=== PATIENT | female | born 1945 | race Hispanic/Latino ===

== ENCOUNTER → 2022-03-27 | Day surgery (SDC) | payer MEDICARE ==
[2022-03-17 10:43] LABS: BASOPHILS # (AUTO) 0.1 (0.0-0.1); BASOPHILS % 0.9 % (0.0-1.0); EOSINOPHILS # (AUTO) 0.1 (0.0-0.4); EOSINOPHILS % 1.7 % (0.0-6.0); HEMATOCRIT 37.3 % (34.2-44.1); HEMOGLOBIN 12.2 g/dL (12.0-16.0); LYMPHOCYTES % 14.5 % (18.0-39.1); MEAN CORPUSCULAR HEMOGLOBIN 26.1 pg (28-32); MEAN CORPUSCULAR HGB CONC 32.7 g/dL (31-35); MEAN CORPUSCULAR VOLUME 79.9 fL (81-99); MONOCYTES # (AUTO) 0.5 (0.2-0.8); MONOCYTES % 7.3 % (4.4-11.3); NEUTROPHILS % 75.1 % (38.7-80.0); PLATELET COUNT 289 x10e3/uL (140-360); RED BLOOD COUNT 4.67 x10e6/uL (3.6-5.1); RED CELL DISTRIBUTION WIDTH 13.4 % (11.7-14.4)
[~2022-03-27] MED LIST: CRESTOR10 MG PO; GLIPIZIDE ER5 MG PO; HYOSCYAMINE SULFATE 0.5 MG/ML INJ ONE; LIDOCAINE HCL 2% LOCAL INJ 5 ML SDV VIAL INJ ONE; MIDAZOLAM HCL 2 MG/2 ML VIAL ONE; MULTI-DAY PLUS1 EAC1 PO; NEURONTIN100 MG PO; NIFEDIPINE ER30 M1 PO; OLMESARTAN-HCT1 EAC1 PO; PROPOFOL IV EMULSION 10 MG/ML 20 ML VIAL ONE; SYNTHROID112 MCG PO
[2022-03-27 11:55] VITALS: BP 128/69
== END | disposition home or self-care (01) ==
LOC: OR 08:20
PROVIDERS: ATTEND Internal Medicine Gastroenterology
DX: K29.70 Gastritis, unspecified, without bleeding (principal); C49.A2 Gastrointestinal stromal tumor of stomach; Z86.010 Personal history of colon polyps; K31.7 Polyp of stomach and duodenum; K56.609 Unspecified intestinal obstruction, unspecified as to partial versus complete obstruction; K20.90 Esophagitis, unspecified without bleeding; K59.09 Other constipation; K44.9 Diaphragmatic hernia without obstruction or gangrene; K57.30 Diverticulosis of large intestine without perforation or abscess without bleeding; K64.8 Other hemorrhoids; Z71.3 Dietary counseling and surveillance; K76.0 Fatty (change of) liver, not elsewhere classified; I10 Essential (primary) hypertension; Z71.89 Other specified counseling; E11.9 Type 2 diabetes mellitus without complications; I72.8 Aneurysm of other specified arteries; E78.00 Pure hypercholesterolemia, unspecified; E03.9 Hypothyroidism, unspecified; M06.9 Rheumatoid arthritis, unspecified; M19.90 Unspecified osteoarthritis, unspecified site; Z91.048 Other nonmedicinal substance allergy status; Z79.84 Long term (current) use of oral hypoglycemic drugs; Z79.899 Other long term (current) drug therapy; Z68.32 Body mass index [BMI] 32.0-32.9, adult
CPT/HCPCS: 36415 ×2; 43239; 45378; 82948; 85025; 93005; C9113; J1980; J2001; J2250; J2704

== ENCOUNTER → 2022-04-26 | Outpatient (CLI) | payer MEDICARE ==
[~2022-04-26] MED LIST changes: -HYOSCYAMINE SULFATE 0.5 MG/ML INJ ONE; -LIDOCAINE HCL 2% LOCAL INJ 5 ML SDV VIAL INJ ONE; -MIDAZOLAM HCL 2 MG/2 ML VIAL ONE; -PROPOFOL IV EMULSION 10 MG/ML 20 ML VIAL ONE
== END ==
LOC: DX 09:16
PROVIDERS: ATTEND Internal Medicine Gastroenterology
DX: Z98.890 Other specified postprocedural states (principal); Z53.8 Procedure and treatment not carried out for other reasons
CPT/HCPCS: 74280